=== PATIENT | female | born 2000 | race Caucasian/White ===

== ENCOUNTER 2024-04-03 22:15 | Inpatient (IN) | payer OTHER, SELFPAY ==
[2024-04-03 22:38] VITALS: BP 86/63; PULSE 100; PULSE 103; RESP 18; TEMP 36.8; O2SAT 100; O2SAT 97; BMI 32.9
[2024-04-03 23:08] LABS: MANUAL DIFF FLAG NO
[2024-04-03 23:09] LABS: Basophils Percent Auto 0.5 % (0-2); Eosinophils Absolute Auto 0.2 X10*3/uL (0.0-0.4); Hematocrit 37.9 % (37.0-47.0); Hemoglobin 12.4 g/dl (12.0-16.0); Imm Gran Abs Auto 0.02 X10*3/uL (0.00-0.03); Imm Gran Pct Auto 0.3 % (0.0-0.4); Lymphocytes Absolute Auto 3.1 X10*3/uL (1.2-4.9); Lymphocytes Percent Auto 41.7 % (20-40); Mean Corpuscular HGB Conc 32.7 g/dl (31.0-35.0); Mean Corpuscular Hemoglobin 26.8 pg (27.0-33.0); Monocytes Absolute Auto 0.6 X10*3/uL (0.1-1.2); Monocytes Percent Auto 8.4 % (2-11); Neutrophils Absolute Auto 3.5 x10*3/uL (2.0-8.3); Neutrophils Percent Auto 47.1 % (45-73); Platelet Count 327 X10*3/uL (160-400); Red Blood Count 4.62 X10*6/uL (4.20-5.50); Red Cell Distribution Width 13.3 % (11.0-16.0); White Blood Count 7.5 X10*3/uL (4.8-10.8)
[2024-04-03 23:11] LABS: Appearance Urine Clear; Color Urine Dark Yellow; Glucose Urine UA Negative (Negative); Leukocyte Esterase Urine Negative (Negative); Nitrite Urine Negative (Negative); PH 5.5 (5.0-9.0); Specific Gravity - Urine >= 1.030 (1.005-1.025); UMIC TRIGGER UA YES; UPreg QC Valid YES; Urine Blood Large (3+) (Negative); Urine Ketones 15 mg/dL (Negative); Urine Pregnancy NEGATIVE (NEGATIVE); Urine Protein Trace mg/dL (Neg-Trace)
[2024-04-03 23:24] LABS: Bacteria Urine 1+ (None Seen); Hyaline Casts Urine 0-2 /LPF (0-2); WBC Urine 0-5 /HPF (0-5)
[2024-04-03 23:27] LABS: Amphetamine Screen Urine Not Detected (Not Detect); Barbiturates, Urine Not Detected (Not Detect); Benzodiazepines Screen Urine POSITIVE (Not Detect); Buprenorphine Scr Not Detected (Not Detect); Cannabinoid Screen Urine Not Detected (Not Detect); Cocaine Screen Urine Not Detected (Not Detect); Fentanyl, urine Not Detected (Not Detect); Methadone Screen, Urine Not Detected (Not Detect); Opiate Screen Urine Not Detected (Not Detect); Phencyclidine Screen Urine POSITIVE (Not Detect)
[2024-04-03 23:28] LABS: Alanine Aminotransferase 19 U/L (0-31); Alkaline Phosphatase 72 U/L (39-117); Anion Gap 14 (12-20); Aspartate Amino Transferase 24 U/L (5-31); Bilirubin Total 0.5 mg/dL (0.0-1.0); Blood Urea Nitrogen 10 mg/dL (9-16); Calcium 9.2 mg/dL (8.4-10.2); Carbon Dioxide 27 mmol/L (22-29); Chloride 108 mmol/L (96-108); Creatinine Clr Calc Pharmacy 97.3; Estimated Glomerular Filt Rate > 60; Glucose Random 90 mg/dL (60-115); Potassium 3.6 mmol/L (3.3-5.1); Sodium 145 mmol/L (135-145); Total Protein 6.8 g/dL (6.5-8.0)
[2024-04-03 23:54] LABS: Ethanol 54 mg/dL
[2024-04-03 23:57] LABS: Oxycodone Screen Urine Not Detected (Not Detect)
--- NOTE | 2024-04-04 | ECG_ITS ---
Test Reason : QTC CHECK Blood Pressure : / mmHG Vent. Rate : 074 BPM Atrial Rate : 074 BPM P-R Int : 178 ms QRS Dur : 078 ms QT Int : 418 ms P-R-T Axes : 018 044 032 degrees QTc Int : 463 ms Normal sinus rhythm Low voltage QRS Borderline ECG No previous ECGs available Referred By: Rajani Alston Electronically Signed By:Jeramy Salas
--- NOTE | 2024-04-04 00:36 | ED.GENADULT ---
HPI - General Adult General Chief complaint: Psychiatric Symptoms Stated complaint: Crisis SI Time Seen by Provider: 04/03/24 23:11 Source: patient, RN notes reviewed and old records reviewed Mode of arrival: EMS Limitations: no limitations History of Present Illness ED Provider: Galina BOSWELL narrative: 23-year-old female presents for evaluation from a alf. She apparently got into a conflict with staff at the alf. She is at the [facility] She told staff there that she was suicidal because she was upset. She states that she is not currently suicidal. She states ?I just want to go to sleep. ? The patient is somewhat sleepy during the exam but does arouse to answer questions She has no somatic complaints Related Data Home Medications ?Medication ?Instructions ?Recorded ?Confirmed aripiprazole 2 mg tablet 2 mg PO DAILY 04/04/24 04/04/24 buspirone 15 mg tablet 15 mg PO BID 04/04/24 04/04/24 clonidine HCl 0.1 mg tablet 0.1 mg PO TID 04/04/24 04/04/24 fluoxetine 10 mg capsule 10 mg PO DAILY 04/04/24 04/04/24 fluoxetine 40 mg capsule 40 mg PO DAILY 04/04/24 04/04/24 hydroxyzine HCl 50 mg tablet 25 - 50 mg PO TID PRN Anxiety 04/04/24 04/04/24 melatonin 3 mg tablet 3 mg PO BEDTIME 04/04/24 04/04/24 naltrexone 50 mg tablet 50 mg PO DAILY 04/04/24 04/04/24 nicotine 21 mg/24 hr daily 1 patch transdermal DAILY 04/04/24 04/04/24 transdermal patch polyethylene glycol 3350 17 gram 17 g PO DAILY PRN Constipation 04/04/24 04/04/24 oral powder packet (Miralax) quetiapine 25 mg tablet 25 mg PO BID 04/04/24 04/04/24 quetiapine 50 mg tablet 50 mg PO BEDTIME 04/04/24 04/04/24 trazodone 100 mg tablet 150 mg PO BEDTIME 04/04/24 04/04/24 Allergies Allergy/AdvReac Type Severity Reaction Status Date / Time No Known Allergies Allergy Verified 04/03/24 22:46 Review of Systems Constitutional: Constitutional: Denies body ache(s), Denies chills and Denies headache(s) Eyes: Eyes: Denies blurry vision ENT: Denies headache(s) and Denies sore throat Cardiovascular: Cardiovascular: Denies chest pain and Denies dyspnea Respiratory: Respiratory: Denies cough and Denies dyspnea Gastrointestinal: Gastrointestinal: Denies abdominal pain, Denies nausea and Denies vomiting Musculoskeletal: Musculoskeletal: Denies back pain Integumentary/Breasts: Skin/Breast: Denies rash Neurologic: Denies headache(s) Psychiatric: Psychiatric: Denies anxiety, Reports depression, Denies auditory hallucinations, Denies visual hallucinations and Reports suicidal ideation [facility] Social History Social History Patient Tobacco Use Status: Never used Tobacco Advance Directives: No Do you have a plan to hurt others: No Plan Nutrition Risks: No Nutritional Risk Physical Exam ED Vital Signs: Vital Signs - 24 hr 04/03/24 22:38 04/04/24 06:41 04/04/24 10:08 Temperature 98.3 F 97.8 F Pulse Rate 103 H 66 Respiratory Rate 18 15 Blood Pressure 86/63 L 107/53 L 112/46 L Pulse Oximetry 97 98 Oxygen Delivery Method Room Air Room Air BMI result Body Mass Index 32.9 Const General: healthy appearing, comfortable, no acute distress and lethargic Nutritional Appearance: well nourished Orientation/consciousness: patient oriented x3 and lethargic HENOR Head: Yes normocephalic and Yes atraumatic Eyes Eyelids: Yes eyelids normal Conjunctivae: conjunctivae normal Sclerae: sclerae normal Corneas: corneas normal Pupils: Equal, round and reactive pupils present EOM: EOMs intact bilaterally Neck Neck: Yes full ROM Resp Effort & Inspection: normal respiratory effort, able to speak in complete sentences and not labored GI Inspection: No distended Palpation (GI): Soft to palpation, not firm, nontender, no guarding and not rigid Skin General skin exam: elasticity normal Neuro General: patient oriented x3 Cranial nerves: Yes Equal, round and reactive pupils present and Yes Bilaterally intact EOM present Cognition (Neuro): normal cognition Extrem Other: Moving all extremities well without any obvious deformities Psych Appearance: grossly normal Speech and movement: Normal speech and movement present Affect: Indifferent affect present Attitude: cooperative Thought process: Normal thought process present Thought content: Suicidality present Insight: Limited insight present (Psych) Judgement: Limited judgement present (Psych) Course Reevaluation(s) Reevaluation #1: patient being transferred upstairs to inpatient psychiatric unit, this ends physician obvious, no acute events, patient otherwise appears well, no respiratory distress, are RRR, no abd pain. Time: 13:44 Medications Administered Generic Name Dose Route Start Last Admin Trade Name Anum PRN Reason Stop Dose Admin Buspirone HCl 15 mg 04/04/24 09:45 04/04/24 10:08 Buspirone Hcl 5 Mg Tablet PO 15 mg BID KARELY Administration Clonidine HCl 0.1 mg 04/04/24 09:45 04/04/24 15:59 Clonidine Hcl 0.1 Mg Tablet PO 0.1 mg TID KARELY Administration Protocol Quetiapine Fumarate 25 mg 04/04/24 09:45 04/04/24 10:08 Quetiapine Fumarate 25 Mg Tablet PO 25 mg BID KARELY Administration Medical Decision Making Medical Decision Making [facility] Narrative: 23-year-old female presents for evaluation of depression with reported suicidal ideation. She states that she is not actively suicidal. Plan for medical clearance and care team evaluation Differential Diagnosis Differential Diagnoses: The differential diagnosis associated with the presentation includes Depression Suicidal ideation Bipolar disorder Substance abuse Alcohol intoxication Lab Data [facility] Lab Attestation statement: I reviewed the patient's lab results. No leukocytosis or anemia. Normal platelet count. No significant electrolyte abnormalities. Ethanol level of 54 04/03/24 23:00 04/03/24 23:00 Labs: Lab Results 04/03/24 04/03/24 Range/Units 23:00 23:01 WBC 7.5 (4.8-10.8) X10*3/uL RBC 4.62 (4.20-5.50) X10*6/uL Hgb 12.4 (12.0-16.0) g/dl Hct 37.9 (37.0-47.0) % MCV 82.0 (80.0-98.0) fL MCH 26.8 L (27.0-33.0) pg MCHC 32.7 (31.0-35.0) g/dl RDW 13.3 (11.0-16.0) % Plt Count 327 (160-400) X10*3/uL MPV 9.0 L (9.4-12.3) fL Immature Gran % (Auto) 0.3 (0.0-0.4) % Neut % (Auto) 47.1 (45-73) % Lymph % (Auto) 41.7 H (20-40) % [place] % (Auto) 8.4 (2-11) % Eos % (Auto) 2.0 (0-4) % Baso % (Auto) 0.5 (0-2) % Lymph # (Auto) 3.1 (1.2-4.9) X10*3/uL [place] # (Auto) 0.6 (0.1-1.2) X10*3/uL Eos # (Auto) 0.2 (0.0-0.4) X10*3/uL Baso # (Auto) 0.0 (0.0-0.2) X10*3/uL Abs Immat Gran (auto) 0.02 (0.00-0.03) X10*3/uL Absolute Neuts (auto) 3.5 (2.0-8.3) x10*3/uL Absolute Nucleated RBC 0.000 (0.0-0.012) X10*3/uL Nucleated RBC % (auto) 0.0 (0.0-0.2) /100WBC Sodium 145 (135-145) mmol/L Potassium 3.6 (3.3-5.1) mmol/L Chloride 108 (96-108) mmol/L Carbon Dioxide 27 (22-29) mmol/L Anion Gap 14 (12-20) BUN 10 (9-16) mg/dL Creatinine 0.89 (0.5-1.4) mg/dL Estim Creat Clear Calc 97.3 Estimated GFR > 60 Random Glucose 90 (60-115) mg/dL Calcium 9.2 (8.4-10.2) mg/dL Total Bilirubin 0.5 (0.0-1.0) mg/dL AST 24 (5-31) U/L ALT 19 (0-31) U/L Alkaline Phosphatase 72 (39-117) U/L Total Protein 6.8 (6.5-8.0) g/dL Albumin 4.0 (3.5-5.0) g/dL Urine Color Dark Yellow Urine Appearance Clear Urine pH 5.5 (5.0-9.0) Ur Specific [place] >= 1.030 H (1.005-1.025) Urine Protein Trace (Neg-Trace) mg/dL Urine Glucose (UA) Negative (Negative) mg/dL Urine Ketones 15 (Negative) mg/dL Urine Blood Large (3+) H (Negative) Urine Nitrite Negative (Negative) Ur Leukocyte Esterase Negative (Negative) Urine RBC 3-5 H (0-2) /HPF Urine WBC 0-5 (0-5) /HPF Ur Squamous Epith Cells 6-10 (0-2) /HPF Urine Bacteria 1+ (None Seen) Hyaline Casts 0-2 (0-2) /LPF Urine Test NEGATIVE (NEGATIVE) Urine Opiates Screen Not Detected (Not Detect) Ur Buprenorphine Scrn Not Detected (Not Detect) ng/mL Ur Oxycodone Screen Not Detected (Not Detect) ng/mL Urine Methadone Screen Not Detected (Not Detect) ng/mL Urine Fentanyl Screen Not Detected (Not Detect) Ur Barbiturates Screen Not Detected (Not Detect) Ur Phencyclidine Scrn POSITIVE H (Not Detect) Ur Amphetamines Screen Not Detected (Not Detect) U Benzodiazepines Scrn POSITIVE H (Not Detect) Urine Cocaine Screen Not Detected (Not Detect) U Marijuana (THC) Screen Not Detected (Not Detect) Ethyl Alcohol 54 mg/dL Discharge Plan Discharge Clinical Impression: Depression Patient Disposition: Admitted As Inpatient Interventions: [place]-Suicide Risk Severity Scale Last Done: 04/04/24 02:28 Admission Worksheet (ED) Last Done: 04/04/24 15:27 Discharge Date/Time: 04/04/24 16:20
--- NOTE | 2024-04-04 01:32 | MHC.CARE ---
Pt currently not clinically appropriate to be assessed . CARE team will see her in the morning.
[2024-04-04 06:41] VITALS: BP 107/53; PULSE 66; RESP 15; TEMP 36.6; O2SAT 98
--- NOTE | 2024-04-04 07:21 | PC.NURSE ---
Care of Pt assumed at change of shift. Pt observes resting quietly in bed. Breakfast tray provided.
--- NOTE | 2024-04-04 07:47 | PC.NURSE ---
Registration comes to meet with Pt. Registration completed without issue.
[2024-04-04 10:08] VITALS: BP 112/46
[2024-04-04] MEDS: QUEtiapine Fumarate 25 MG TABLET PO (10:08)
[2024-04-04] MEDS: busPIRone HCl 5 MG TABLET 15 MG PO (10:08)
[2024-04-04] MEDS: cloNIDine HCL 0.1 MG TABLET PO ×3 (10:08→21:30)
--- NOTE | 2024-04-04 10:40 | PHA.MEDREC ---
Addendum entered by Kaden Tafoya RPh 04/04/24 13:41: Med rec was reviewed by [facility]. Original Note: Pharmacy Consult ? Medication Reconciliation Pharmacy reviewed med rec done by nursing. Got list from [facility] and confirmed medications correct on med rec, nurse had imputed non-formulary medications on there so I updated and changed the medications to formulary.
[2024-04-04 15:27] VITALS: BP 111/57; PULSE 69; RESP 15; TEMP 36.7; O2SAT 96
--- NOTE | 2024-04-04 15:53 | PC.NURSE ---
Assumed care of patient at 1445, patient appears to be in no apparent distress this afternoon, sleeping, respirations even and unlabored. Continue plan of care for admission to [address]
[2024-04-04 17:12] VITALS: BP 112/72; PULSE 74; RESP 14; TEMP 36.6; O2SAT 97
[2024-04-04 17:13] VITALS: BMI 37.6
--- NOTE | 2024-04-04 18:52 | PC.ADMIT ---
Addendum entered by Sharmila Cueva RN 04/04/24 19:37: Pt does not have polysub use d/o was entered by mistake. Information about false positive came from the crisis evaluation. Original Note: Angelica is a 23 y/o female that was admitted to at 1620 from the Pod on CV for treatment of polysub use d/o, etoh use d/o increased SI. Pt is recently unemployed and lives in residential placement. Pt presented to the ed after increasing thoughts of SI, thoughts of not wanting to live and hopelessness. Pt has been in a detox program through [facility] for the past 4.5 months. Pt reported having struggles with etoh use, depression and anxiety and worthlessness. Pt denied HI at this time. Pt has a hx of suicide attempt, cutting wrist 6 months ago. Pt denied AVH.? Mood is depressed. Affect is sad and depressed.? Pt denied any recent weight change. Pt has reported recent hx of poor sleep. Tox Screen positive for benzodiazepine and possible false positive of PCP (pt reported currently prescribed and takes clonzapam). Hx of etoh use and last drank 2.5 nips of fire ball 04/03/24, recent relapse. Pt currently was steeping down from detox to css program.? Pt currently smokes 1/2 pack of cigarettes a day. Hx of panic attacks.? Pt was placed on 15 min checks for safety. NKA. Pt was compliant w/ skin check , unremarkable. Pt goal upon d/c is to feel safe.
[2024-04-04 19:55] VITALS: BP 99/57; PULSE 62; RESP 16; TEMP 36.4; O2SAT 98
[2024-04-04] MEDS: QUEtiapine Fumarate 50 MG TABLET PO (21:29)
[2024-04-04] MEDS: Melatonin 3 MG TABLET PO (21:29)
[2024-04-04 21:30] VITALS: BP 108/55
[2024-04-04] MEDS: traZODone HCL 50 MG TABLET 150 MG PO (21:30)
[2024-04-05 07:40] VITALS: BP 96/55; PULSE 72; RESP 14; TEMP 36.5; O2SAT 99
[2024-04-05] MEDS: FLUoxetine HCl 10 MG CAPSULE 50 MG PO (08:52)
[2024-04-05] MEDS: Thiamine HCL 100 MG TABLET PO (08:53)
[2024-04-05] MEDS: Naltrexone HCl 50 MG TABLET PO (08:53)
[2024-04-05] MEDS: ARIPiprazole 2 MG TABLET PO (08:54)
[2024-04-05] MEDS: QUEtiapine Fumarate 25 MG TABLET PO ×2 (08:54→14:22)
[2024-04-05] MEDS: Nicotine 21 MG PATCH.TD24 TRANSDERMA (08:54)
[2024-04-05 08:56] VITALS: BP 87/43
[2024-04-05 08:58] VITALS: BP 87/43; PULSE 80; RESP 16
[2024-04-05 09:06] LABS: Alanine Aminotransferase 16 U/L (0-31); Albumin Level 3.6 g/dL (3.5-5.0); Alkaline Phosphatase 68 U/L (39-117); Anion Gap 9 (12-20); Aspartate Amino Transferase 22 U/L (5-31); Bilirubin Total 0.6 mg/dL (0.0-1.0); Blood Urea Nitrogen 12 mg/dL (9-16); Calcium 9.4 mg/dL (8.4-10.2); Carbon Dioxide 27 mmol/L (22-29); Chloride 107 mmol/L (96-108); Cholesterol 178 mg/dL (<200); Creatinine Clr Calc Pharmacy 116.2; Estimated Glomerular Filt Rate > 60; Glucose Fasting 108 mg/dL (60-99); HDL Cholesterol 45 mg/dL (>40); LDL Cholesterol Calculated 112 mg/dL (<100); Potassium 4.1 mmol/L (3.3-5.1); Sodium 139 mmol/L (135-145); Total Protein 6.4 g/dL (6.5-8.0); Triglycerides 108 mg/dL (<150)
--- NOTE | 2024-04-05 09:32 | P.HPPS_ITS ---
HPI Date of Service: 04/05/24 Chief Complaint: crisis Sources of Information: patient interviewed, chart reviewed and crisis/core team assessment reviewed HPI Subjective Notes: [place] Warning and Conditional Voluntary Narrative: Patient is a 23-year-old female with history of MDD, PTSD, borderline personality disorder and alcohol use disorder who was brought in by ambulance to ER from her substance abuse residential program due to suicidal ideation secondary to increased depressive symptoms. Per crisis report, patient has been in a residential program for 4-1/2 months. She reports struggling with alcohol use and depression.; reports feelings of hopelessness. Patient can not identify a precipitant to increased depressive symptoms. Patient reports history of cutting to cope but cut for a month due to being embarrassed about visible scars. Outpatient psychiatric providers through [facility]. Utox positive for PCP, benzodiazepines and alcohol. During admission assessment, patient presents alert and oriented x3. Calm and cooperative. Patient reports feeling depressed and anxious ; patient stated, every couple of months I get these feelings of suicide and I end up in a place like this. I do not feel safe with myself . Patient reports no history of suicide attempts. History of superficially cutting. Patient reports suicidal ideation with plan to cut myself with scissors until I bleed out . Patient denies HI/VH/AH. Past Psychiatric History: Outpatient psychiatric providers through [facility]. Outpatient prescriber: Dr. Guaman History of inpatient psychiatric hospitalizations History of detox admissions Medical Evaluation Reviewed: Yes [facility] Family History: Mother: Bipolar Social History: Lives in a residential program for substance abuse. Single. No kids. High school diploma. Works part-time at [employer]. Substance History: Utox positive for PCP and alcohol. Trauma History: Yes Diagnostics Vital Signs (24Hr): Vital Signs - 24 hr 04/04/24 10:08 04/04/24 15:27 04/04/24 17:12 Temperature 98.1 F 98 F Pulse Rate 69 74 Respiratory Rate 15 14 Blood Pressure 112/46 L 111/57 L 112/72 Pulse Oximetry 96 97 Oxygen Delivery Method Room Air Room Air 04/04/24 19:55 04/04/24 21:30 04/05/24 07:40 Temperature 97.6 F 97.7 F Pulse Rate 62 72 Respiratory Rate 16 14 Blood Pressure 99/57 L 108/55 L 96/55 L Pulse Oximetry 98 99 Oxygen Delivery Method Room Air Room Air 04/05/24 08:56 04/05/24 08:58 Temperature Pulse Rate 80 Respiratory Rate 16 Blood Pressure 87/43 L 87/43 L Pulse Oximetry Oxygen Delivery Method BMI result Body Mass Index 37.6 Labs 04/03/24 23:00 04/05/24 07:57 Labs: Laboratory Results - last 48 hr 04/03/24 04/03/24 04/05/24 23:00 23:01 07:57 WBC 7.5 RBC 4.62 Hgb 12.4 Hct 37.9 MCV 82.0 MCH 26.8 L MCHC 32.7 RDW 13.3 Plt Count 327 MPV 9.0 L Immature Gran % (Auto) 0.3 Neut % (Auto) 47.1 Lymph % (Auto) 41.7 H [place] % (Auto) 8.4 Eos % (Auto) 2.0 Baso % (Auto) 0.5 Lymph # (Auto) 3.1 [place] # (Auto) 0.6 Eos # (Auto) 0.2 Baso # (Auto) 0.0 Abs Immat Gran (auto) 0.02 Absolute Neuts (auto) 3.5 Absolute Nucleated RBC 0.000 Nucleated RBC % (auto) 0.0 Sodium 145 139 Potassium 3.6 4.1 Chloride 108 107 Carbon Dioxide 27 27 Anion Gap 14 9 L BUN 10 12 Creatinine 0.89 0.80 Estim Creat Clear Calc 97.3 116.2 Estimated GFR > 60 > 60 Random Glucose 90 Fasting Glucose 108 H Calcium 9.2 9.4 Total Bilirubin 0.5 0.6 AST 24 22 ALT 19 16 Alkaline Phosphatase 72 68 Total Protein 6.8 6.4 L Albumin 4.0 3.6 Triglycerides 108 Cholesterol 178 LDL Cholesterol, Calc 112 H HDL Cholesterol 45 Urine Color Dark Yellow Urine Appearance Clear Urine pH 5.5 Ur Specific [place] >= 1.030 H Urine Protein Trace Urine Glucose (UA) Negative Urine Ketones 15 Urine Blood Large (3+) H Urine Nitrite Negative Ur Leukocyte Esterase Negative Urine RBC 3-5 H Urine WBC 0-5 Ur Squamous Epith Cells 6-10 Urine Bacteria 1+ Hyaline Casts 0-2 Urine Test NEGATIVE Urine Opiates Screen Not Detected Ur Buprenorphine Scrn Not Detected Ur Oxycodone Screen Not Detected Urine Methadone Screen Not Detected Urine Fentanyl Screen Not Detected Ur Barbiturates Screen Not Detected Ur Phencyclidine Scrn POSITIVE H Ur Amphetamines Screen Not Detected U Benzodiazepines Scrn POSITIVE H Urine Cocaine Screen Not Detected U Marijuana (THC) Screen Not Detected Ethyl Alcohol 54 Meds/Allergies Meds Home Medications ?Medication ?Instructions ?Recorded ?Confirmed ?Type aripiprazole 2 mg tablet 2 mg PO DAILY 04/04/24 04/04/24 History buspirone 15 mg tablet 15 mg PO BID 04/04/24 04/04/24 History clonidine HCl 0.1 mg tablet 0.1 mg PO TID 04/04/24 04/04/24 History fluoxetine 10 mg capsule 10 mg PO DAILY 04/04/24 04/04/24 History fluoxetine 40 mg capsule 40 mg PO DAILY 04/04/24 04/04/24 History hydroxyzine HCl 50 mg tablet 25 - 50 mg PO TID PRN Anxiety 04/04/24 04/04/24 History melatonin 3 mg tablet 3 mg PO BEDTIME 04/04/24 04/04/24 History naltrexone 50 mg tablet 50 mg PO DAILY 04/04/24 04/04/24 History nicotine 21 mg/24 hr daily 1 patch transdermal DAILY 04/04/24 04/04/24 History transdermal patch polyethylene glycol 3350 17 gram 17 g PO DAILY PRN Constipation 04/04/24 04/04/24 History oral powder packet (Miralax) quetiapine 25 mg tablet 25 mg PO BID 04/04/24 04/04/24 History quetiapine 50 mg tablet 50 mg PO BEDTIME 04/04/24 04/04/24 History trazodone 100 mg tablet 150 mg PO BEDTIME 04/04/24 04/04/24 History Allergies Allergies Allergy/AdvReac Type Severity Reaction Status Date / Time No Known Allergies Allergy Verified 04/03/24 22:46 Mental Status Exam Mental Status Exam Narrative: Pt is alert and oriented; behavior is cooperative, guarded; dressed in casual attire; mood is described as depressed ; eye contact appropriate; Speech is normal rate, volume; thought process is organized; Thought content is on tx; denies HI/VH/AH. Patient reports suicidal ideation with plan to cut self until she bleeds out . Assessment & Plan Assessment & Plan (1) MDD (major depressive disorder), recurrent episode, moderate: Status: Acute Code(s): F33.1 - Major depressive disorder, recurrent, moderate (2) PTSD (post-traumatic stress disorder): Status: Acute Code(s): F43.10 - Post-traumatic stress disorder, unspecified (3) Borderline personality disorder: Status: Acute Code(s): F60.3 - Borderline personality disorder (4) Alcohol use disorder: Status: Acute Code(s): F10.90 - Alcohol use, unspecified, uncomplicated Plan Patient is a 23-year-old female with history of MDD, PTSD, borderline personality disorder and alcohol use disorder who was brought in by ambulance to ER from her substance abuse residential program due to suicidal ideation secondary to increased depressive symptoms. Plan: CV 15 minute safety checks Continue program medications; verified from [facility] Obtain collateral Encourage groups Discharge planning Patient educated on: diagnosis, medication risk/benefits and substance abuse Reason for continued inpatient stay Substantial Risk for: harm to self and med/psych decompensation Statement Statement: I have reviewed the history and physical and performed a pertinent examination on my patient. No changes have occurred unless specified. If the History and Physical was not performed prior to admission, the Hospitalist's service will be consulted for completing the admission physical. Time Spent With Patient Time: Total time managing care of this patient today _60___ minutes.
[2024-04-05 14:20] VITALS: BP 114/55; PULSE 64
[2024-04-05] MEDS: hydrOXYzine HCL 50 MG TABLET PO (14:23)
[2024-04-05] MEDS: Gabapentin 600 MG TABLET PO ×2 (15:33→20:43)
[2024-04-05] MEDS: clonazePAM 0.5 MG TABLET PO (15:33)
[2024-04-05] MEDS: Ondansetron ODT 4 MG TAB.RAPDIS TRANSLINGU (15:58)
[2024-04-05 19:54] VITALS: BP 103/56; PULSE 74; RESP 16; TEMP 36.3; O2SAT 100
[2024-04-05 20:43] VITALS: BP 102/74
[2024-04-05] MEDS: Melatonin 3 MG TABLET 9 MG PO (20:43)
[2024-04-05] MEDS: clonazePAM 1 MG TABLET PO (20:43)
[2024-04-05] MEDS: cloNIDine HCL 0.1 MG TABLET PO (20:43)
[2024-04-05] MEDS: QUEtiapine Fumarate 100 MG TABLET PO (20:44)
[2024-04-06 07:20] VITALS: BP 108/49; PULSE 63; RESP 16; TEMP 36.9; O2SAT 96
--- NOTE | 2024-04-06 07:39 | P.PNPSI_ITS ---
Subjective Subjective Date of Service: 04/06/24 Reason For Visit: crisis Subjective Notes: Conditional Voluntary Interim History: As per nursing flat, guarded, not attending groups. Declining good room. Isolative. With credit underwriter does describe feeling anxious. Denied overt depression. No psychosis. Reported feeling safe And not paranoid. Does have intermittent thoughts of suicide and cutting, but also feeling supported in current setting. Sleep okay. We discussed medications for anxiety and consider either gabapentin or hydroxyzine increased. Will increase gabapentin to 800 mg 3 times per day. Medication Compliance: Yes Side effects from medications: No Attending Groups: No Mental Status Exam Mental Status Exam Narrative: Pt is alert and oriented; behavior is cooperative, guarded; dressed in casual attire; mood is described as anxious ; eye contact appropriate; Speech is normal rate, volume; thought process is organized; Thought content is on tx; denies HI/VH/AH. Patient reports suicidal ideation with intermittent thoughts of cutting but also feel supported Diagnostics Vital Signs (24Hr): Vital Signs - 24 hr 04/05/24 07:40 04/05/24 08:56 04/05/24 08:58 Temperature 97.7 F Pulse Rate 72 80 Respiratory Rate 14 16 Blood Pressure 96/55 L 87/43 L 87/43 L Pulse Oximetry 99 Oxygen Delivery Method Room Air 04/05/24 14:20 04/05/24 19:54 04/05/24 20:43 Temperature 97.3 F Pulse Rate 64 74 Respiratory Rate 16 Blood Pressure 114/55 L 103/56 L 102/74 Pulse Oximetry 100 Oxygen Delivery Method Room Air BMI result Body Mass Index 37.6 Labs 04/03/24 23:00 04/05/24 07:57 Labs: Laboratory Results - last 48 hr 04/05/24 07:57 Sodium 139 Potassium 4.1 Chloride 107 Carbon Dioxide 27 Anion Gap 9 L BUN 12 Creatinine 0.80 Estim Creat Clear Calc 116.2 Estimated GFR > 60 Fasting Glucose 108 H Calcium 9.4 Total Bilirubin 0.6 AST 22 ALT 16 Alkaline Phosphatase 68 Total Protein 6.4 L Albumin 3.6 Triglycerides 108 Cholesterol 178 LDL Cholesterol, Calc 112 H HDL Cholesterol 45 Medications Medications Current Medications Acetaminophen (Acetaminophen 325 Mg Tablet) 650 mg PO Q6H PRN PRN Reason: Headache/Pain Mild Scale (1-3) Al Hydroxide/Mg Hydroxide (Magnesium Hydrox/Alum Hydrox 30 Ml Oral.Susp) 30 ml PO Q6H PRN PRN Reason: Heartburn/Nausea Aripiprazole (Aripiprazole 5 Mg Tablet) 5 mg PO DAILY [facility] Buspirone HCl (Buspirone Hcl 5 Mg Tablet) 15 mg PO BID [facility] Last Admin: 04/05/24 21:38 Dose: Not Given Clonazepam (Clonazepam 0.5 Mg Tablet) 0.5 mg PO BID@0900,1500 [facility] Last Admin: 04/05/24 15:33 Dose: 0.5 mg Clonazepam (Clonazepam 1 Mg Tablet) 1 mg PO BEDTIME [facility] Last Admin: 04/05/24 20:43 Dose: 1 mg Clonidine HCl (Clonidine Hcl 0.1 Mg Tablet) 0.1 mg PO TID [facility]; Protocol Last Admin: 04/05/24 20:43 Dose: 0.1 mg Fluoxetine HCl (Fluoxetine Hcl 20 Mg Capsule) 60 mg PO DAILY [facility] Gabapentin (Gabapentin 600 Mg Tablet) 600 mg PO TID [facility] Last Admin: 04/05/24 20:43 Dose: 600 mg Hydroxyzine HCl (Hydroxyzine Hcl 50 Mg Tablet) 50 mg PO TID PRN PRN Reason: Anxiety Last Admin: 04/05/24 14:23 Dose: 50 mg Magnesium Hydroxide (Milk Of Magnesia 30 Ml Oral.Susp) 30 ml PO DAILY PRN PRN Reason: Constipation Melatonin (Melatonin 3 Mg Tablet) 9 mg PO BEDTIME [facility] Last Admin: 04/05/24 20:43 Dose: 9 mg Naltrexone HCl (Naltrexone Hcl 50 Mg Tablet) 50 mg PO DAILY [facility] Last Admin: 04/05/24 08:53 Dose: 50 mg Nicotine (Nicotine 21 Mg Patch.Td24) 21 mg TRANSDERMA DAILY [facility] Last Admin: 04/05/24 08:54 Dose: 21 mg Nicotine Polacrilex (Nicotine Polacrilex 2 Mg Gum) 4 mg BUCCAL Q2H PRN PRN Reason: Nicotine Cravings Ondansetron HCl (Ondansetron Odt 4 Mg Tab.Rapdis) 4 mg TRANSLINGU Q8H PRN PRN Reason: Nausea and Vomiting Last Admin: 04/05/24 15:58 Dose: 4 mg Polyethylene Glycol (Polyethylene Glycol 3350 17 Gm Powd.Pack) 17 gm PO DAILY PRN PRN Reason: Constipation Quetiapine Fumarate (Quetiapine Fumarate 100 Mg Tablet) 100 mg PO BEDTIME [facility] Last Admin: 04/05/24 20:44 Dose: 100 mg Allergies Allergies Allergy/AdvReac Type Severity Reaction Status Date / Time No Known Allergies Allergy Verified 04/03/24 22:46 Assessment & Plan Assessment & Plan (1) MDD (major depressive disorder), recurrent episode, moderate: Status: Acute Code(s): F33.1 - Major depressive disorder, recurrent, moderate (2) PTSD (post-traumatic stress disorder): Status: Acute Code(s): F43.10 - Post-traumatic stress disorder, unspecified (3) Borderline personality disorder: Status: Acute Code(s): F60.3 - Borderline personality disorder (4) Alcohol use disorder: Status: Acute Code(s): F10.90 - Alcohol use, unspecified, uncomplicated Plan Patient is a 23-year-old female with history of MDD, PTSD, borderline personality disorder and alcohol use disorder who was brought in by ambulance to ER from her substance abuse residential program due to suicidal ideation secondary to increased depressive symptoms. Plan: CV 15 minute safety checks Continue program medications; verified from [facility] Obtain collateral Encourage groups Discharge planning 04/06/2024: Increase gabapentin to 800 mg 3 times per day for anxiety. Requires ongoing admission due to suicidality Reason for continued inpatient stay Substantial Risk for: harm to self Time Spent With Patient Time: Total time managing care of this patient today ____ minutes.
[2024-04-06] MEDS: Nicotine 21 MG PATCH.TD24 TRANSDERMA (09:35)
[2024-04-06 09:36] VITALS: BP 100/51; PULSE 73; O2SAT 97
[2024-04-06] MEDS: ARIPiprazole 5 MG TABLET PO (09:37)
[2024-04-06] MEDS: clonazePAM 0.5 MG TABLET PO ×2 (09:38→15:44)
[2024-04-06] MEDS: Naltrexone HCl 50 MG TABLET PO (09:38)
[2024-04-06] MEDS: Gabapentin 600 MG TABLET PO (09:38)
[2024-04-06] MEDS: FLUoxetine HCl 20 MG CAPSULE 60 MG PO (09:38)
[2024-04-06] MEDS: Gabapentin 400 MG CAPSULE 800 MG PO ×2 (15:43→20:16)
[2024-04-06] MEDS: Ondansetron ODT 4 MG TAB.RAPDIS TRANSLINGU (17:25)
[2024-04-06] MEDS: hydrOXYzine HCL 50 MG TABLET PO (17:25)
[2024-04-06 19:25] VITALS: BP 88/48; PULSE 68; RESP 16; TEMP 36.8; O2SAT 96
[2024-04-06 20:15] VITALS: BP 113/73
[2024-04-06] MEDS: cloNIDine HCL 0.1 MG TABLET PO (20:15)
[2024-04-06] MEDS: Melatonin 3 MG TABLET 9 MG PO (20:15)
[2024-04-06] MEDS: QUEtiapine Fumarate 100 MG TABLET PO (20:16)
[2024-04-06] MEDS: clonazePAM 1 MG TABLET PO (20:16)
[2024-04-07 09:06] VITALS: BP 109/51; PULSE 67; RESP 14; TEMP 36.4; O2SAT 98
[2024-04-07] MEDS: FLUoxetine HCl 20 MG CAPSULE 60 MG PO (09:07)
[2024-04-07] MEDS: Gabapentin 400 MG CAPSULE 800 MG PO ×3 (09:07→20:02)
[2024-04-07] MEDS: ARIPiprazole 5 MG TABLET PO (09:07)
[2024-04-07] MEDS: Naltrexone HCl 50 MG TABLET PO (09:08)
[2024-04-07] MEDS: clonazePAM 0.5 MG TABLET PO ×2 (09:08→15:02)
[2024-04-07] MEDS: Nicotine 21 MG PATCH.TD24 TRANSDERMA (09:10)
--- NOTE | 2024-04-07 10:15 | P.PNPSI_ITS ---
Subjective Subjective Date of Service: 04/07/24 Reason For Visit: crisis Medical Problems Affecting Mental Status: No Interim History: As per nursing flat, guarded, not attending groups. Isolative. Appropriate engagement with resume writer today in room. Still feeling anxious with higher gabapentin dose and discussed increasing hydroxyzine dose as needed. No psychosis. Reported feeling safe Intermittent thoughts of suicide and cutting, but also feeling supported in current setting. Sleep okay. Medication Compliance: Yes Side effects from medications: No Attending Groups: No Review of Systems Acute medical concerns: No Mental Status Exam Mental Status Exam Narrative: Pt is alert and oriented; behavior is cooperative, guarded; dressed in casual attire in room, mood is described as anxious ; eye contact appropriate; Speech is normal rate, volume; thought process is organized; Thought content is on tx; denies HI/VH/AH. Patient reports suicidal ideation with intermittent thoughts of cutting but also feel supported and no intent or plans Diagnostics Vital Signs (24Hr): Vital Signs - 24 hr 04/06/24 19:25 04/06/24 20:15 04/07/24 09:06 Temperature 98.2 F 97.6 F Pulse Rate 68 67 Respiratory Rate 16 14 Blood Pressure 88/48 L 113/73 109/51 L Pulse Oximetry 96 98 Oxygen Delivery Method Room Air Room Air BMI result Body Mass Index 37.6 Labs 04/03/24 23:00 04/05/24 07:57 Medications Medications Current Medications Acetaminophen (Acetaminophen 325 Mg Tablet) 650 mg PO Q6H PRN PRN Reason: Headache/Pain Mild Scale (1-3) Al Hydroxide/Mg Hydroxide (Magnesium Hydrox/Alum Hydrox 30 Ml Oral.Susp) 30 ml PO Q6H PRN PRN Reason: Heartburn/Nausea Aripiprazole (Aripiprazole 5 Mg Tablet) 5 mg PO DAILY [facility] Last Admin: 04/07/24 09:07 Dose: 5 mg Buspirone HCl (Buspirone Hcl 5 Mg Tablet) 15 mg PO BID [facility] Last Admin: 04/07/24 09:09 Dose: Not Given Clonazepam (Clonazepam 0.5 Mg Tablet) 0.5 mg PO BID@0900,1500 [facility] Last Admin: 04/07/24 09:08 Dose: 0.5 mg Clonazepam (Clonazepam 1 Mg Tablet) 1 mg PO BEDTIME [facility] Last Admin: 04/06/24 20:16 Dose: 1 mg Clonidine HCl (Clonidine Hcl 0.1 Mg Tablet) 0.1 mg PO TID [facility]; Protocol Last Admin: 04/07/24 09:09 Dose: Not Given Fluoxetine HCl (Fluoxetine Hcl 20 Mg Capsule) 60 mg PO DAILY [facility] Last Admin: 04/07/24 09:07 Dose: 60 mg Gabapentin (Gabapentin 400 Mg Capsule) 800 mg PO TID [facility] Last Admin: 04/07/24 09:07 Dose: 800 mg Hydroxyzine HCl (Hydroxyzine Hcl 50 Mg Tablet) 50 mg PO TID PRN PRN Reason: Anxiety Last Admin: 04/06/24 17:25 Dose: 50 mg Magnesium Hydroxide (Milk Of Magnesia 30 Ml Oral.Susp) 30 ml PO DAILY PRN PRN Reason: Constipation Melatonin (Melatonin 3 Mg Tablet) 9 mg PO BEDTIME [facility] Last Admin: 04/06/24 20:15 Dose: 9 mg Naltrexone HCl (Naltrexone Hcl 50 Mg Tablet) 50 mg PO DAILY [facility] Last Admin: 04/07/24 09:08 Dose: 50 mg Nicotine (Nicotine 21 Mg Patch.Td24) 21 mg TRANSDERMA DAILY [facility] Last Admin: 04/07/24 09:10 Dose: 21 mg Nicotine Polacrilex (Nicotine Polacrilex 2 Mg Gum) 4 mg BUCCAL Q2H PRN PRN Reason: Nicotine Cravings Ondansetron HCl (Ondansetron Odt 4 Mg Tab.Rapdis) 4 mg TRANSLINGU Q8H PRN PRN Reason: Nausea and Vomiting Last Admin: 04/06/24 17:25 Dose: 4 mg Polyethylene Glycol (Polyethylene Glycol 3350 17 Gm Powd.Pack) 17 gm PO DAILY PRN PRN Reason: Constipation Quetiapine Fumarate (Quetiapine Fumarate 100 Mg Tablet) 100 mg PO BEDTIME [facility] Last Admin: 04/06/24 20:16 Dose: 100 mg Allergies Allergies Allergy/AdvReac Type Severity Reaction Status Date / Time No Known Allergies Allergy Verified 04/03/24 22:46 Assessment & Plan Assessment & Plan (1) MDD (major depressive disorder), recurrent episode, moderate: Status: Acute Code(s): F33.1 - Major depressive disorder, recurrent, moderate (2) PTSD (post-traumatic stress disorder): Status: Acute Code(s): F43.10 - Post-traumatic stress disorder, unspecified (3) Borderline personality disorder: Status: Acute Code(s): F60.3 - Borderline personality disorder (4) Alcohol use disorder: Status: Acute Code(s): F10.90 - Alcohol use, unspecified, uncomplicated Plan Patient is a 23-year-old female with history of MDD, PTSD, borderline personality disorder and alcohol use disorder who was brought in by ambulance to ER from her substance abuse residential program due to suicidal ideation secondary to increased depressive symptoms. Plan: CV 15 minute safety checks Continue program medications; verified from [facility] Obtain collateral Encourage groups Discharge planning 04/06/2024: Increase gabapentin to 800 mg 3 times per day for anxiety. Requires ongoing admission due to suicidality 04/07: increasing hydroxyzine dose as needed. Requires ongoing admission due to suicidality Reason for continued inpatient stay Substantial Risk for: harm to self Time Spent With Patient Time: Total time managing care of this patient today ____ minutes.
[2024-04-07] MEDS: Ondansetron ODT 4 MG TAB.RAPDIS TRANSLINGU (12:37)
[2024-04-07 15:04] VITALS: BP 123/77
[2024-04-07] MEDS: cloNIDine HCL 0.1 MG TABLET PO (15:04)
[2024-04-07 19:45] VITALS: BP 130/84; PULSE 72; RESP 18; TEMP 36.7; O2SAT 100
[2024-04-07] MEDS: Melatonin 3 MG TABLET 9 MG PO (20:02)
[2024-04-07] MEDS: hydrOXYzine HCL 50 MG TABLET 100 MG PO (20:02)
[2024-04-07] MEDS: QUEtiapine Fumarate 100 MG TABLET PO (20:02)
[2024-04-07] MEDS: clonazePAM 1 MG TABLET PO (20:02)
[2024-04-08 10:05] VITALS: BP 68/44; PULSE 83; TEMP 36.8; O2SAT 97
[2024-04-08] MEDS: Gabapentin 400 MG CAPSULE 800 MG PO ×3 (10:13→20:11)
[2024-04-08] MEDS: FLUoxetine HCl 20 MG CAPSULE 60 MG PO (10:13)
[2024-04-08] MEDS: Naltrexone HCl 50 MG TABLET PO (10:23)
[2024-04-08] MEDS: ARIPiprazole 5 MG TABLET PO (10:23)
[2024-04-08] MEDS: clonazePAM 0.5 MG TABLET PO ×2 (10:23→14:52)
[2024-04-08 10:24] VITALS: BP 88/52
[2024-04-08] MEDS: Nicotine 21 MG PATCH.TD24 TRANSDERMA (10:40)
--- NOTE | 2024-04-08 10:58 | P.PNPSI_ITS ---
Subjective Subjective Date of Service: 04/08/24 Reason For Visit: crisis Subjective Notes: Conditional Voluntary Interim History: Per nursing, pt is more active in the evening. Pt reports feeling a little better ; she reports some thoughts of suicidal ideation but states she wouldn't act on it . denies HI/VH/AH. Pt continues to report anxiety; clonidine DC'd d/t continued low BP. Encouraged to utilize PRNs. Plan for discharge back to program later in the week if continues to improve. Medication Compliance: Yes Side effects from medications: No Attending Groups: No Review of Systems Constitutional: Reports as per HPI Eyes: Reports as per HPI Reports as per HPI Cardiovascular: Reports as per HPI Respiratory: Reports as per HPI Gastrointestinal: Reports as per HPI Genitourinary: Reports as per HPI Musculoskeletal: Reports as per HPI Skin/Breast: Reports as per HPI Reports as per HPI Psychiatric: Reports as per HPI Endocrine: Reports as per HPI Hematologic/Lymphatic: Reports as per HPI Allergic/Immunologic: Reports as per HPI Mental Status Exam Mental Status Exam Narrative: Pt is alert and oriented; behavior is cooperative and calm; dressed in casual attire; mood is described as anxious ; eye contact appropriate; Speech is normal rate, volume and not pressured; thought process is organized; Thought content is on tx; denies HI/VH/AH. Pt reports a little suicidal ideation but states she would never act on it . Diagnostics Vital Signs (24Hr): Vital Signs - 24 hr 04/07/24 15:04 04/07/24 19:45 04/08/24 10:05 Temperature 98.0 F 98.2 F Pulse Rate 72 83 Respiratory Rate 18 Blood Pressure 123/77 130/84 68/44 L Pulse Oximetry 100 97 Oxygen Delivery Method Room Air Room Air 04/08/24 10:24 Temperature Pulse Rate Respiratory Rate Blood Pressure 88/52 L Pulse Oximetry Oxygen Delivery Method BMI result Body Mass Index 37.6 Labs 04/03/24 23:00 04/05/24 07:57 Medications Medications Current Medications Acetaminophen (Acetaminophen 325 Mg Tablet) 650 mg PO Q6H PRN PRN Reason: Headache/Pain Mild Scale (1-3) Al Hydroxide/Mg Hydroxide (Magnesium Hydrox/Alum Hydrox 30 Ml Oral.Susp) 30 ml PO Q6H PRN PRN Reason: Heartburn/Nausea Aripiprazole (Aripiprazole 5 Mg Tablet) 5 mg PO DAILY [facility] Last Admin: 04/08/24 10:23 Dose: 5 mg Buspirone HCl (Buspirone Hcl 5 Mg Tablet) 15 mg PO BID [facility] Last Admin: 04/08/24 10:24 Dose: Not Given Clonazepam (Clonazepam 0.5 Mg Tablet) 0.5 mg PO BID@0900,1500 [facility] Last Admin: 04/08/24 10:23 Dose: 0.5 mg Clonazepam (Clonazepam 1 Mg Tablet) 1 mg PO BEDTIME [facility] Last Admin: 04/07/24 20:02 Dose: 1 mg Clonidine HCl (Clonidine Hcl 0.1 Mg Tablet) 0.1 mg PO DAILY [facility]; Protocol Last Admin: 04/08/24 10:24 Dose: Not Given Fluoxetine HCl (Fluoxetine Hcl 20 Mg Capsule) 60 mg PO DAILY [facility] Last Admin: 04/08/24 10:13 Dose: 60 mg Gabapentin (Gabapentin 400 Mg Capsule) 800 mg PO TID [facility] Last Admin: 04/08/24 10:13 Dose: 800 mg Hydroxyzine HCl (Hydroxyzine Hcl 50 Mg Tablet) 100 mg PO TID PRN PRN Reason: Anxiety Last Admin: 04/07/24 20:02 Dose: 100 mg Magnesium Hydroxide (Milk Of Magnesia 30 Ml Oral.Susp) 30 ml PO DAILY PRN PRN Reason: Constipation Melatonin (Melatonin 3 Mg Tablet) 9 mg PO BEDTIME [facility] Last Admin: 04/07/24 20:02 Dose: 9 mg Naltrexone HCl (Naltrexone Hcl 50 Mg Tablet) 50 mg PO DAILY [facility] Last Admin: 04/08/24 10:23 Dose: 50 mg Nicotine (Nicotine 21 Mg Patch.Td24) 21 mg TRANSDERMA DAILY [facility] Last Admin: 04/08/24 10:40 Dose: 21 mg Nicotine Polacrilex (Nicotine Polacrilex 2 Mg Gum) 4 mg BUCCAL Q2H PRN PRN Reason: Nicotine Cravings Ondansetron HCl (Ondansetron Odt 4 Mg Tab.Rapdis) 4 mg TRANSLINGU Q8H PRN PRN Reason: Nausea and Vomiting Last Admin: 04/07/24 12:37 Dose: 4 mg Polyethylene Glycol (Polyethylene Glycol 3350 17 Gm Powd.Pack) 17 gm PO DAILY PRN PRN Reason: Constipation Quetiapine Fumarate (Quetiapine Fumarate 100 Mg Tablet) 100 mg PO BEDTIME [facility] Last Admin: 04/07/24 20:02 Dose: 100 mg Allergies Allergies Allergy/AdvReac Type Severity Reaction Status Date / Time No Known Allergies Allergy Verified 04/03/24 22:46 Assessment & Plan Assessment & Plan (1) MDD (major depressive disorder), recurrent episode, moderate: Status: Acute Code(s): F33.1 - Major depressive disorder, recurrent, moderate (2) PTSD (post-traumatic stress disorder): Status: Acute Code(s): F43.10 - Post-traumatic stress disorder, unspecified (3) Borderline personality disorder: Status: Acute Code(s): F60.3 - Borderline personality disorder (4) Alcohol use disorder: Status: Acute Code(s): F10.90 - Alcohol use, unspecified, uncomplicated Plan Patient is a 23-year-old female with history of MDD, PTSD, borderline personality disorder and alcohol use disorder who was brought in by ambulance to ER from her substance abuse residential program due to suicidal ideation secondary to increased depressive symptoms. Plan: CV 15 minute safety checks Continue program medications; verified from [facility] Obtain collateral Encourage groups Discharge planning 04/06/2024: Increase gabapentin to 800 mg 3 times per day for anxiety. Requires ongoing admission due to suicidality 04/07: increasing hydroxyzine dose as needed. Requires ongoing admission due to suicidality 04/08: Per nursing, pt is more active in the evening. Pt reports feeling a little better ; she reports some thoughts of suicidal ideation but states she wouldn't act on it . denies HI/VH/AH. Pt continues to report anxiety; clonidine DC'd d/t continued low BP. Encouraged to utilize PRNs. Plan for discharge back to program later in the week if continues to improve. Patient educated on: diagnosis, medication risk/benefits and therapeutic strategies Reason for continued inpatient stay Substantial Risk for: med/psych decompensation Time Spent With Patient Time: Total time managing care of this patient today _20___ minutes.
[2024-04-08] MEDS: hydrOXYzine HCL 50 MG TABLET 100 MG PO (14:55)
[2024-04-08 20:00] VITALS: BP 131/83; PULSE 81; RESP 16; TEMP 36.4; O2SAT 98
[2024-04-08] MEDS: clonazePAM 1 MG TABLET PO (20:11)
[2024-04-08] MEDS: Melatonin 3 MG TABLET 9 MG PO (20:11)
[2024-04-08] MEDS: chlorproMAZINE HCl 25 MG TABLET 50 MG PO (20:11)
[2024-04-08] MEDS: QUEtiapine Fumarate 100 MG TABLET PO (20:11)
[2024-04-09 08:00] VITALS: BP 125/62; PULSE 94; RESP 14; TEMP 36.1; O2SAT 96
[2024-04-09] MEDS: Naltrexone HCl 50 MG TABLET PO (09:09)
[2024-04-09] MEDS: FLUoxetine HCl 20 MG CAPSULE 60 MG PO (09:09)
[2024-04-09] MEDS: Gabapentin 400 MG CAPSULE 800 MG PO ×3 (09:09→20:27)
[2024-04-09] MEDS: Nicotine 21 MG PATCH.TD24 TRANSDERMA (09:10)
[2024-04-09] MEDS: clonazePAM 0.5 MG TABLET PO ×2 (09:10→14:55)
[2024-04-09] MEDS: ARIPiprazole 5 MG TABLET PO (09:10)
--- NOTE | 2024-04-09 09:14 | P.PNPSI_ITS ---
Subjective Subjective Date of Service: 04/09/24 Reason For Visit: crisis Subjective Notes: Conditional Voluntary Interim History: Attending groups in the evening. Pt continues to report anxiety; pt stated, I had separation anxiety last night when my boyfriend left and needed to take something . Pt reports she will try to attend more groups regarding coping skills. per nursing, slept 8 hours. denies SI/HI/VH/AH. Medication Compliance: Yes Side effects from medications: No Attending Groups: Intermittent Review of Systems Constitutional: Reports as per HPI Eyes: Reports as per HPI Reports as per HPI Cardiovascular: Reports as per HPI Respiratory: Reports as per HPI Gastrointestinal: Reports as per HPI Musculoskeletal: Reports as per HPI Skin/Breast: Reports as per HPI Reports as per HPI Psychiatric: Reports as per HPI Endocrine: Reports as per HPI Hematologic/Lymphatic: Reports as per HPI Allergic/Immunologic: Reports as per HPI Mental Status Exam Mental Status Exam Narrative: Pt is alert and oriented; behavior is cooperative and calm; dressed in casual attire; mood is described as anxious ; eye contact appropriate; Speech is normal rate, volume and not pressured; thought process is organized; Thought content is on tx; denies SI/HI/VH/AH. Diagnostics Vital Signs (24Hr): Vital Signs - 24 hr 04/08/24 10:05 04/08/24 10:24 04/08/24 20:00 Temperature 98.2 F 97.6 F Pulse Rate 83 81 Respiratory Rate 16 Blood Pressure 68/44 L 88/52 L 131/83 Pulse Oximetry 97 98 Oxygen Delivery Method Room Air Room Air 04/09/24 08:00 Temperature 97.0 F Pulse Rate 94 Respiratory Rate 14 Blood Pressure 125/62 Pulse Oximetry 96 Oxygen Delivery Method Room Air BMI result Body Mass Index 37.6 Labs 04/03/24 23:00 04/05/24 07:57 Medications Medications Current Medications Acetaminophen (Acetaminophen 325 Mg Tablet) 650 mg PO Q6H PRN PRN Reason: Headache/Pain Mild Scale (1-3) Al Hydroxide/Mg Hydroxide (Magnesium Hydrox/Alum Hydrox 30 Ml Oral.Susp) 30 ml PO Q6H PRN PRN Reason: Heartburn/Nausea Aripiprazole (Aripiprazole 5 Mg Tablet) 5 mg PO DAILY [facility] BEDS AT [facility] Last Admin: 04/09/24 09:10 Dose: 5 mg Buspirone HCl (Buspirone Hcl 5 Mg Tablet) 15 mg PO BID [facility] 234 BEDS AT [facility] Last Admin: 04/08/24 20:12 Dose: Not Given Clonazepam (Clonazepam 0.5 Mg Tablet) 0.5 mg PO BID@0900,1500 [facility] BEDS [facility] Last Admin: 04/09/24 09:10 Dose: 0.5 mg Clonazepam (Clonazepam 1 Mg Tablet) 1 mg PO BEDTIME [facility] 234 BEDS AT [facility] Last Admin: 04/08/24 20:11 Dose: 1 mg Fluoxetine HCl (Fluoxetine Hcl 20 Mg Capsule) 60 mg PO DAILY [facility] 234 BEDS [facility] Last Admin: 04/09/24 09:09 Dose: 60 mg Gabapentin (Gabapentin 400 Mg Capsule) 800 mg PO TID [facility] 234 BEDS [facility] Last Admin: 04/09/24 09:09 Dose: 800 mg Hydroxyzine HCl (Hydroxyzine Hcl 50 Mg Tablet) 100 mg PO TID PRN PRN Reason: Anxiety Last Admin: 04/08/24 14:55 Dose: 100 mg Magnesium Hydroxide (Milk Of Magnesia 30 Ml Oral.Susp) 30 ml PO DAILY PRN PRN Reason: Constipation Melatonin (Melatonin 3 Mg Tablet) 9 mg PO BEDTIME [facility] 234 B[facility]S [facility] Last Admin: 04/08/24 20:11 Dose: 9 mg Naltrexone HCl (Naltrexone Hcl 50 Mg Tablet) 50 mg PO DAILY [facility] 234 B[facility]S [facility] Last Admin: 04/09/24 09:09 Dose: 50 mg Nicotine (Nicotine 21 Mg Patch.Td24) 21 mg TRANSDERMA DAILY [facility] 234 BEDS [facility] Last Admin: 04/09/24 09:10 Dose: 21 mg Nicotine Polacrilex (Nicotine Polacrilex 2 Mg Gum) 4 mg BUCCAL Q2H PRN PRN Reason: Nicotine Cravings Ondansetron HCl (Ondansetron Odt 4 Mg Tab.Rapdis) 4 mg TRANSLINGU Q8H PRN PRN Reason: Nausea and Vomiting Last Admin: 04/07/24 12:37 Dose: 4 mg Polyethylene Glycol (Polyethylene Glycol 3350 17 Gm Powd.Pack) 17 gm PO DAILY PRN PRN Reason: Constipation Quetiapine Fumarate (Quetiapine Fumarate 100 Mg Tablet) 100 mg PO BEDTIME [facility] B[facility]S [facility] Last Admin: 04/08/24 20:11 Dose: 100 mg Allergies Allergies Allergy/AdvReac Type Severity Reaction Status Date / Time No Known Allergies Allergy Verified 04/03/24 22:46 Assessment & Plan Assessment & Plan (1) MDD (major depressive disorder), recurrent episode, moderate: Status: Acute Code(s): F33.1 - Major depressive disorder, recurrent, moderate (2) PTSD (post-traumatic stress disorder): Status: Acute Code(s): F43.10 - Post-traumatic stress disorder, unspecified (3) Borderline personality disorder: Status: Acute Code(s): F60.3 - Borderline personality disorder (4) Alcohol use disorder: Status: Acute Code(s): F10.90 - Alcohol use, unspecified, uncomplicated Plan Patient is a 23-year-old female with history of MDD, PTSD, borderline personality disorder and alcohol use disorder who was brought in by ambulance to ER from her substance abuse residential program due to suicidal ideation secondary to increased depressive symptoms. Plan: CV 15 minute safety checks Continue program medications; verified from [facility] Obtain collateral Encourage groups Discharge planning 04/06/2024: Increase gabapentin to 800 mg 3 times per day for anxiety. Requires ongoing admission due to suicidality 04/07: increasing hydroxyzine dose as needed. Requires ongoing admission due to suicidality 04/08: Per nursing, pt is more active in the evening. Pt reports feeling a little better ; she reports some thoughts of suicidal ideation but states she wouldn't act on it . denies HI/VH/AH. Pt continues to report anxiety; clonidine DC'd d/t continued low BP. Encouraged to utilize PRNs. Plan for discharge back to program later in the week if continues to improve. 04/09: Attending groups in the evening. Pt continues to report anxiety; pt stated, I had separation anxiety last night when my boyfriend left and needed to take something . Pt reports she will try to attend more groups regarding coping skills. per nursing, slept 8 hours. denies SI/HI/VH/AH. Continue current tx plan. Patient educated on: diagnosis, medication risk/benefits and therapeutic strategies Reason for continued inpatient stay Substantial Risk for: med/psych decompensation Time Spent With Patient Time: Total time managing care of this patient today _20___ minutes.
[2024-04-09] MEDS: Milk of Magnesia 30 ML ORAL.SUSP PO (09:24)
[2024-04-09] MEDS: hydrOXYzine HCL 50 MG TABLET 100 MG PO ×2 (09:24→18:03)
[2024-04-09] MEDS: Ondansetron ODT 4 MG TAB.RAPDIS TRANSLINGU (17:29)
[2024-04-09 20:00] VITALS: BP 140/87; PULSE 108; RESP 16; TEMP 36.4; O2SAT 98
[2024-04-09] MEDS: chlorproMAZINE HCl 25 MG TABLET 50 MG PO (20:26)
[2024-04-09] MEDS: Melatonin 3 MG TABLET 9 MG PO (20:27)
[2024-04-09] MEDS: QUEtiapine Fumarate 100 MG TABLET PO (20:27)
[2024-04-09] MEDS: clonazePAM 1 MG TABLET PO (20:28)
[2024-04-09] MEDS: polyethylene glycoL 3350 17 GM POWD.PACK PO (20:55)
[2024-04-10 08:00] VITALS: BP 121/58; PULSE 111; RESP 14; TEMP 36.6; O2SAT 95
[2024-04-10] MEDS: FLUoxetine HCl 20 MG CAPSULE 60 MG PO (08:32)
[2024-04-10] MEDS: ARIPiprazole 5 MG TABLET PO (08:33)
[2024-04-10] MEDS: Naltrexone HCl 50 MG TABLET PO (08:33)
[2024-04-10] MEDS: Gabapentin 400 MG CAPSULE 800 MG PO ×3 (08:33→20:30)
[2024-04-10] MEDS: clonazePAM 0.5 MG TABLET PO ×2 (08:33→15:21)
[2024-04-10] MEDS: Nicotine 21 MG PATCH.TD24 TRANSDERMA (08:34)
--- NOTE | 2024-04-10 09:38 | HO.PSYCHPN ---
Subjective Subjective Date of Service: 04/10/24 Reason For Visit: crisis Subjective Notes: Conditional Voluntary Interim History: Pt continues to report anxiety; she reports feeling ready to go back to the program . denies SI/HI/VH/AH. Patient reports she plans on following up with her outpatient providers. plan for discharge tomorrow. Medication Compliance: Yes Side effects from medications: No Attending Groups: Intermittent Review of Systems Constitutional: Reports as per HPI Eyes: Reports as per HPI Reports as per HPI Cardiovascular: Reports as per HPI Respiratory: Reports as per HPI Gastrointestinal: Reports as per HPI Musculoskeletal: Reports as per HPI Skin/Breast: Reports as per HPI Reports as per HPI Psychiatric: Reports as per HPI Endocrine: Reports as per HPI Hematologic/Lymphatic: Reports as per HPI Allergic/Immunologic: Reports as per HPI Mental Status Exam Mental Status Exam Narrative: Pt is alert and oriented; behavior is cooperative and calm; dressed in casual attire; mood is described as anxious ; eye contact appropriate; Speech is normal rate, volume and not pressured; thought process is organized; Thought content is on tx; denies SI/HI/VH/AH. Diagnostics Vital Signs (24Hr): Vital Signs - 24 hr 04/09/24 20:00 04/10/24 08:00 Temperature 97.5 F 98 F Pulse Rate 108 H 111 H Respiratory Rate 16 14 Blood Pressure 140/87 H 121/58 L Pulse Oximetry 98 95 Oxygen Delivery Method Room Air Room Air BMI result Body Mass Index 37.6 Labs 04/03/24 23:00 04/05/24 07:57 Medications Medications Current Medications Acetaminophen (Acetaminophen 325 Mg Tablet) 650 mg PO Q6H PRN PRN Reason: Headache/Pain Mild Scale (1-3) Al Hydroxide/Mg Hydroxide (Magnesium Hydrox/Alum Hydrox 30 Ml Oral.Susp) 30 ml PO Q6H PRN PRN Reason: Heartburn/Nausea Aripiprazole (Aripiprazole 5 Mg Tablet) 5 mg PO DAILY [facility] Last Admin: 04/10/24 08:33 Dose: 5 mg Clonazepam (Clonazepam 0.5 Mg Tablet) 0.5 mg PO BID@0900,1500 [facility] Last Admin: 04/10/24 08:33 Dose: 0.5 mg Clonazepam (Clonazepam 1 Mg Tablet) 1 mg PO BEDTIME [facility] Last Admin: 04/09/24 20:28 Dose: 1 mg Fluoxetine HCl (Fluoxetine Hcl 20 Mg Capsule) 60 mg PO DAILY [facility] Last Admin: 04/10/24 08:32 Dose: 60 mg Gabapentin (Gabapentin 400 Mg Capsule) 800 mg PO TID [facility] Last Admin: 04/10/24 08:33 Dose: 800 mg Hydroxyzine HCl (Hydroxyzine Hcl 50 Mg Tablet) 100 mg PO TID PRN PRN Reason: Anxiety Last Admin: 04/09/24 18:03 Dose: 100 mg Magnesium Hydroxide (Milk Of Magnesia 30 Ml Oral.Susp) 30 ml PO DAILY PRN PRN Reason: Constipation Last Admin: 04/09/24 09:24 Dose: 30 ml Melatonin (Melatonin 3 Mg Tablet) 9 mg PO BEDTIME [facility] Last Admin: 04/09/24 20:27 Dose: 9 mg Naltrexone HCl (Naltrexone Hcl 50 Mg Tablet) 50 mg PO DAILY [facility] Last Admin: 04/10/24 08:33 Dose: 50 mg Nicotine (Nicotine 21 Mg Patch.Td24) 21 mg TRANSDERMA DAILY [facility] Last Admin: 04/10/24 08:34 Dose: 21 mg Nicotine Polacrilex (Nicotine Polacrilex 2 Mg Gum) 4 mg BUCCAL Q2H PRN PRN Reason: Nicotine Cravings Ondansetron HCl (Ondansetron Odt 4 Mg Tab.Rapdis) 4 mg TRANSLINGU Q8H PRN PRN Reason: Nausea and Vomiting Last Admin: 04/09/24 17:29 Dose: 4 mg Polyethylene Glycol (Polyethylene Glycol 3350 17 Gm Powd.Pack) 17 gm PO DAILY PRN PRN Reason: Constipation Last Admin: 04/09/24 20:55 Dose: 17 gm Quetiapine Fumarate (Quetiapine Fumarate 100 Mg Tablet) 100 mg PO BEDTIME [facility] Last Admin: 04/09/24 20:27 Dose: 100 mg Allergies Allergies Allergy/AdvReac Type Severity Reaction Status Date / Time No Known Allergies Allergy Verified 04/03/24 22:46 Assessment & Plan Assessment & Plan (1) MDD (major depressive disorder), recurrent episode, moderate: Status: Acute Code(s): F33.1 - Major depressive disorder, recurrent, moderate (2) PTSD (post-traumatic stress disorder): Status: Acute Code(s): F43.10 - Post-traumatic stress disorder, unspecified (3) Borderline personality disorder: Status: Acute Code(s): F60.3 - Borderline personality disorder (4) Alcohol use disorder: Status: Acute Code(s): F10.90 - Alcohol use, unspecified, uncomplicated Plan Patient is a 23-year-old female with history of MDD, PTSD, borderline personality disorder and alcohol use disorder who was brought in by ambulance to ER from her substance abuse residential program due to suicidal ideation secondary to increased depressive symptoms. Plan: CV 15 minute safety checks Continue program medications; verified from [facility] Obtain collateral Encourage groups Discharge planning 04/06/2024: Increase gabapentin to 800 mg 3 times per day for anxiety. Requires ongoing admission due to suicidality 04/07: increasing hydroxyzine dose as needed. Requires ongoing admission due to suicidality 04/08: Per nursing, pt is more active in the evening. Pt reports feeling a little better ; she reports some thoughts of suicidal ideation but states she wouldn't act on it . denies HI/VH/AH. Pt continues to report anxiety; clonidine DC'd d/t continued low BP. Encouraged to utilize PRNs. Plan for discharge back to program later in the week if continues to improve. 04/09: Attending groups in the evening. Pt continues to report anxiety; pt stated, I had separation anxiety last night when my boyfriend left and needed to take something . Pt reports she will try to attend more groups regarding coping skills. per nursing, slept 8 hours. denies SI/HI/VH/AH. Continue current tx plan. 04/10: Pt continues to report anxiety; she reports feeling ready to go back to the program . denies SI/HI/VH/AH. Patient reports she plans on following up with her outpatient providers. plan for discharge tomorrow. Patient educated on: diagnosis and medication risk/benefits Reason for continued inpatient stay Substantial Risk for: stable for discharge Time Spent With Patient Time: Total time managing care of this patient today _20___ minutes.
[2024-04-10 19:45] VITALS: BP 157/91; PULSE 115; RESP 18; TEMP 36.3; O2SAT 99
[2024-04-10] MEDS: QUEtiapine Fumarate 100 MG TABLET PO (20:31)
[2024-04-10] MEDS: clonazePAM 1 MG TABLET PO (20:31)
[2024-04-10] MEDS: Melatonin 3 MG TABLET 9 MG PO (20:31)
[2024-04-10] MEDS: hydrOXYzine HCL 50 MG TABLET 100 MG PO (20:31)
[2024-04-10] MEDS: Milk of Magnesia 30 ML ORAL.SUSP PO (20:34)
[2024-04-10 21:01] VITALS: BP 122/73; PULSE 98
[2024-04-11 07:00] VITALS: BMI 38.1
[2024-04-11 07:54] VITALS: RESP 18
[2024-04-11] MEDS: Nicotine 21 MG PATCH.TD24 TRANSDERMA (08:29)
[2024-04-11] MEDS: FLUoxetine HCl 20 MG CAPSULE 60 MG PO (08:30)
[2024-04-11] MEDS: clonazePAM 0.5 MG TABLET PO (08:30)
[2024-04-11] MEDS: Gabapentin 400 MG CAPSULE 800 MG PO (08:30)
[2024-04-11] MEDS: ARIPiprazole 5 MG TABLET PO (08:30)
[2024-04-11] MEDS: Naltrexone HCl 50 MG TABLET PO (08:31)
[2024-04-11] MEDS: Ondansetron ODT 4 MG TAB.RAPDIS TRANSLINGU (08:33)
--- NOTE | 2024-04-11 09:26 | PM.PSYDC ---
DS: Providers Provider Date of Service: 04/11/24 Date of admission: 04/04/24 13:46 Date of discharge: 04/11/24 Primary care physician: Unknown Physician Admitting clinician: Robina Guy Attending physician on admission: Tony Jimenez Consults: 04/04/24 18:54 Addiction Medicine Routine Consulting Provider: Addiction Covering Reason for consultation: recent etoh relapse Attending physician on discharge: Imtiaz Adams Discharging clinician: Robina Guy DS: Diagnosis Discharge Diagnosis (1) MDD (major depressive disorder), recurrent episode, moderate: Status: Acute (2) PTSD (post-traumatic stress disorder): Status: Acute (3) Borderline personality disorder: Status: Acute (4) Alcohol use disorder: Status: Acute DS: Medications Discharge Medications Home Medications: Home Medications ?Medication ?Instructions ?Recorded ?Confirmed melatonin 3 mg tablet 3 mg PO BEDTIME 04/04/24 04/04/24 nicotine 21 mg/24 hr daily 1 patch transdermal DAILY 04/04/24 04/04/24 transdermal patch polyethylene glycol 3350 17 gram 17 g PO DAILY PRN Constipation 04/04/24 04/04/24 oral powder packet (Miralax) Previous Rx's ?Medication ?Instructions ?Recorded aripiprazole 5 mg tablet (Abilify) 5 mg PO DAILY 30 days #30 tabs 04/10/24 chlorpromazine 25 mg tablet 25 mg PO DAILY PRN anxiety 14 days 04/10/24 #14 tabs clonazepam 0.5 mg tablet 0.5 mg PO BID@0900,1500 7 days #14 04/10/24 tabs clonazepam 1 mg tablet 1 mg PO BEDTIME 7 days #7 tabs 04/10/24 fluoxetine 60 mg tablet 60 mg PO DAILY 30 days #30 tabs 04/10/24 gabapentin 800 mg tablet 800 mg PO TID 30 days #90 tabs 04/10/24 hydroxyzine HCl 50 mg tablet 100 mg (2 x 50 mg) PO BID Anxiety 04/10/24 14 days #56 tabs naltrexone 50 mg tablet 50 mg PO DAILY 30 days #30 tabs 04/10/24 quetiapine 100 mg tablet 100 mg PO BEDTIME 30 days #30 tabs 04/10/24 Mental Status Exam Mental Status Exam Narrative: Pt is alert and oriented; behavior is cooperative and calm; dressed in casual attire; mood is described as good ; eye contact appropriate; Speech is normal rate, volume and not pressured; thought process is organized; Thought content is on tx; denies SI/HI/VH/AH. Data Data Completed and Pending Completed studies during hospitalization [Text1]: 04/05/24 07:57 Sodium 139 Potassium 4.1 Chloride 107 Carbon Dioxide 27 Anion Gap 9 L BUN 12 Creatinine 0.80 Estim Creat Clear Calc 116.2 Estimated GFR > 60 Fasting Glucose 108 H Calcium 9.4 Total Bilirubin 0.6 AST 22 ALT 16 Alkaline Phosphatase 68 Total Protein 6.4 L Albumin 3.6 Triglycerides 108 Cholesterol 178 LDL Cholesterol, Calc 112 H HDL Cholesterol 45 DS: Summary Hospital Course Hospital Course: Patient is a 23-year-old female with history of MDD, PTSD, borderline personality disorder and alcohol use disorder who was brought in by ambulance to ER from her substance abuse residential program due to suicidal ideation secondary to increased depressive symptoms. Per crisis report, patient has been in a residential program for 4-1/2 months. She reports struggling with alcohol use and depression.; reports feelings of hopelessness. Patient can not identify a precipitant to increased depressive symptoms. Patient reports history of cutting to cope but cut for a month due to being embarrassed about visible scars. Outpatient psychiatric providers through [facility]. Utox positive for PCP, benzodiazepines and alcohol. During admission assessment, patient presents alert and oriented x3. Calm and cooperative. Patient reports feeling depressed and anxious ; patient stated, every couple of months I get these feelings of suicide and I end up in a place like this. I do not feel safe with myself . Patient reports no history of suicide attempts. History of superficially cutting. Patient reports suicidal ideation with plan to cut myself with scissors until I bleed out . Patient denies HI/VH/AH. Past Psychiatric History: Outpatient psychiatric providers through [facility]. Plan: CV 15 minute safety checks Continue program medications; verified from [facility] Obtain collateral Encourage groups Discharge planning Increase gabapentin to 800 mg 3 times per day for anxiety. Requires ongoing admission due to suicidality increasing hydroxyzine dose as needed. Requires ongoing admission due to suicidality Per nursing, pt is more active in the evening. Pt reports feeling a little better ; she reports some thoughts of suicidal ideation but states she wouldn't act on it . denies HI/VH/AH. Pt continues to report anxiety; clonidine DC'd d/t continued low BP. Encouraged to utilize PRNs. Plan for discharge back to program later in the week if continues to improve. Attending groups in the evening. Pt continues to report anxiety; pt stated, I had separation anxiety last night when my boyfriend left and needed to take something . Pt reports she will try to attend more groups regarding coping skills. per nursing, slept 8 hours. denies SI/HI/VH/AH. Continue current tx plan. Pt continues to report anxiety; she reports feeling ready to go back to the program . denies SI/HI/VH/AH. Patient reports she plans on following up with her outpatient providers. plan for discharge tomorrow. Patient reports feeling good today; plans to following up with outpatient providers. denies SI/HI/VH/AH. Time spent discussing smoking cessation with patient: 3 to 10 minutes Status at Discharge Cognitive/behavioral status at discharge: Patient was interviewed prior to discharge and found to be fully oriented and without SI or HI. Patient has insight and demonstrates good judgment in terms of wanting to pursue treatment. Patient has a safety plan that includes presenting to the closest ER or calling 911 if feeling unsafe. Functional status at discharge: independent ambulation Overall status at discharge: patient is back to baseline Time Spent with Patient Time attestation: Total time managing care of this patient today _20___ minutes. Time spent: Less than 30 minutes Discharge Plan Discharge Anticipated Discharge Date/Time: 04/11/24 11:00 Patient Disposition: Home, Self-Care Discharge Diagnosis: MDD, PTSD, Borderline personality d/o, Alcohol use d/o Referrals: [facility] ([facility]) [Other] - 04/19/24 10:30 am (becky In person appointment) [facility] [Provider Group] - 1 Week (04-11-24 [facility] was added to patients chart. Please call [phone] to schedule your follow up appt.) Discharge Medications: New aripiprazole [Abilify] 5 mg Tablet 5 mg PO DAILY 30 Days Qty: 30 0RF fluoxetine 60 mg tablet 60 mg PO DAILY 30 Days Qty: 30 0RF naltrexone 50 mg Tablet 50 mg PO DAILY 30 Days Qty: 30 0RF quetiapine 100 mg Tablet 100 mg PO BEDTIME 30 Days Qty: 30 0RF gabapentin 800 mg tablet 800 mg PO TID 30 Days Qty: 90 0RF clonazepam 1 mg Tablet 1 mg PO BEDTIME 7 Days Qty: 7 1RF clonazepam 0.5 mg Tablet 0.5 mg PO BID@0900,1500 7 Days Qty: 14 1RF hydroxyzine HCl 50 mg Tablet 100 mg PO BID 14 Days Qty: 56 0RF chlorpromazine 25 mg tablet 25 mg PO DAILY PRN (Reason: anxiety) 14 Days Qty: 14 0RF Continued polyethylene glycol 3350 [Miralax] 17 gram powder in packet 17 g PO DAILY PRN (Reason: Constipation) melatonin 3 mg tablet 3 mg PO BEDTIME nicotine 21 mg/24 hr Patch 24 Hour 1 patch TRANSDERMAL DAILY Discontinued clonidine HCl 0.1 mg tablet 0.1 mg PO TID hydroxyzine HCl 50 mg tablet 25 - 50 mg PO TID PRN (Reason: Anxiety) buspirone 15 mg tablet 15 mg PO BID quetiapine 25 mg tablet 25 mg PO BID quetiapine 50 mg tablet 50 mg PO BEDTIME trazodone 100 mg tablet 150 mg PO BEDTIME fluoxetine 40 mg Capsule 40 mg PO DAILY Rx Instructions: Take with 10mg tab for total of 50mg daily naltrexone 50 mg Tablet 50 mg PO DAILY fluoxetine 10 mg Capsule 10 mg PO DAILY Rx Instructions: Take with 40mg tab for total of 50mg daily aripiprazole 2 mg Tablet 2 mg PO DAILY Discharge Orders: Discharge Order (Routine); Ordered 04/11/24 Ordered By: Robina Guy Diet: Regular diet Activity on Discharge: As tolerated Stand Alone Forms: Patient Portal Discharge page, Community Support Print Language: [place] Care Plan Goals: Maintain mood and safe behaviors Take medications as prescribed Continue to pursue sobriety Practice coping skills Continue with outpatient providers and reach out to them as needed Health Concerns: Mood stability and behaviors Sobriety Plan of Treatment: Follow up with your PCP, psychiatric provider and other outpatient providers regarding above concerns Take medications as prescribed Assessment: Patient was interviewed prior to discharge and found to be fully oriented and without SI or HI. Patient has insight and demonstrates good judgment in terms of wanting to pursue treatment. Patient has a safety plan that includes presenting to the closest ER or calling 911 if feeling unsafe. Discharge Date/Time: 04/11/24 10:53
== END 2024-04-11 10:53 | disposition home or self-care (01) | DRG 751 ==
LOC: HO.ED 04-04 07:47 → HO.PADLT16 04-04 13:48
PROVIDERS: Admitting Provider Registered Nurse; Emergency Provider Internal Medicine; Responsible Provider Registered Nurse; Visit Provider Psychiatry & Neurology Psychiatry
DX: F33.1 Major depressive disorder, recurrent, moderate (principal); R45.851 Suicidal ideations; F17.210 Nicotine dependence, cigarettes, uncomplicated; Z71.6 Tobacco abuse counseling; Y90.2 Blood alcohol level of 40-59 mg/100 ml; F43.10 Post-traumatic stress disorder, unspecified; F60.3 Borderline personality disorder; F10.90 Alcohol use, unspecified, uncomplicated
CPT/HCPCS: 36415; 80053; 80061; 80307; 81001; 81025; 85025; 93005; 99285; S9485

== ENCOUNTER → 2024-04-04 09:59 | Outpatient (BNV) | payer OTHER, SELFPAY | PROVIDERS: Admitting Provider Registered Nurse; Emergency Provider Internal Medicine; Visit Provider Internal Medicine Cardiovascular Disease | DX: I45.81 Long QT syndrome (principal) | CPT/HCPCS: 93010 ==

== ENCOUNTER → 2024-04-04 13:46 | Outpatient (BNV) | payer OTHER, SELFPAY | PROVIDERS: Admitting Provider Registered Nurse; Emergency Provider Internal Medicine; Responsible Provider Registered Nurse; Visit Provider Psychiatry & Neurology Psychiatry | DX: F60.3 Borderline personality disorder (principal); F33.1 Major depressive disorder, recurrent, moderate; F43.11 Post-traumatic stress disorder, acute; F10.90 Alcohol use, unspecified, uncomplicated | CPT/HCPCS: 99231; 99232; 99233 ==